=== PATIENT | male | born 1975 | race Caucasian/White ===

== ENCOUNTER 2019-04-02 11:30 | Emergency (ER) | payer MEDICAID, SELFPAY ==
[2019-04-02] VITALS (8 sets, daily range): BP systolic 101–126; BP diastolic 69–78; PULSE 55–92; RESP 12–17; TEMP 36.3; O2SAT 97–98; BMI 26.8
--- NOTE | 2019-04-02 11:45 | ED.RN ---
PT IS RESPECTFUL AND COOPERATIVE. PT IS TEARFUL AT BEDSIDE.
[2019-04-02 12:01] LABS: Absolute Lymphocyte Count 1.89 X10^3/uL (0.83-4.51); Basophil# 0.04 X10^3/uL; Basophil% 0.7 % (0-1); Eosinophil# 0.15 X10^3/uL; Eosinophils% 2.6 % (0-5); Hematocrit 40.3 % (40-54); Hemoglobin 13.9 g/dL (13.0-16.5); Lymphocyte # 1.89 X10^3/ul (4.0); Lymphocyte % 32.6 % (19-41); Mean Corp Hgb Conc 34.5 g/dL (32-36); Mean Corpuscular Hgb 31.2 pg (27.0-32.0); Mean Corpuscular Volume 90.4 fL (80-94); Mean Platelet Vol. 9.3 fl (6.2-12.0); Monocyte# 0.64 X10^3/uL; Monocyte% 11.1 % (0-10); NRBC Flagged by Analyzer 0 % (0-5); Neutrophil % 51.8 % (47-70); Platelet Count 191 K/mm3 (150-450); RBC Distribution Width CV 13.2 % (11.6-14.6); RBC Distribution Width SD 43.5 fl (35.1-43.9); Red Blood Count 4.46 M/mm3 (4.6-6.2); White Blood Count 5.8 K/mm3 (4.4-11.0)
[2019-04-02 12:08] LABS: Anion Gap 4 (5-15); BUN 16 mg/dL (7-18); BUN/Creat Ratio 15.5 RATIO (10-20); Calcium,Total 9.3 mg/dL (8.5-10.1); Chloride 108 mmol/L (98-107); Creatinine, Serum 1.03 mg/dL (0.70-1.30); EST Glomerular Filtration Rate 84 mL/min (>60); Est Glom Filt Rate - Afr Amer 102 mL/min (>60); Estimated Creatinine Clearance 103.59 ml/min; Glucose 98 mg/dL (74-106); Potassium 3.7 mmol/L (3.5-5.1); Sodium Level 140 mmol/L (136-145)
[2019-04-02 12:22] LABS: Amphetamine Urine VISTA POSITIVE (<1000 ng/mL); Barbiturate Urine VISTA NEGATIVE (< 200 ng/mL); Benzodiazepine Urine VISTA NEGATIVE (< 200 ng/mL); Cocaine Urine VISTA NEGATIVE (< 300 ng/mL); Ecstacy Urine VISTA NEGATIVE (< 500 ng/mL); Methadone Urine VISTA NEGATIVE (< 300 ng/mL); PCP Urine VISTA NEGATIVE (< 25 ng/mL); THC Urine VISTA NEGATIVE (< 50 ng/mL); Vista UDS pH Range 6
[2019-04-02 12:26] LABS: Alcohol, Blood (Medical)-Serum < 3.0 mg/dL
--- NOTE | 2019-04-02 12:49 | ED.VISSUMM ---
- ER Visit Summary Date of Service: 04/02/19 Chief Complaint: Suicidal ideation History of Present Illness: The patient is a 43 M who complains of suicidal ideation. Today he got into an argument with his significant other and wanted to kill himself. He tried to cut his throat with a piece of glass. He cut the right side but it is very superficial. He does admit to a history of attempts in the past. He has no psychiatric admissions in the past. He does not see any psychiatric worker, mental health counselor or psychiatrist at this time. Physical Examination: Vital signs reviewed. HEENT exam unremarkable. Heart is regular rate and rhythm without murmurs. Lungs are clear to auscultation. Abdomen is soft and nontender. Extremities reveal no edema. Skin exam shows a superficial abrasion to the right side of the neck. His neurologic exam is normal. He has a flat affect and does voice suicidal thoughts. Test Results: Laboratory studies negative except for a tox screen which showed amphetamines Emergency Department Course and Treatment: Patient was assessed by the mental health worker. He will need to be placed. He will likely go to [facility]. Will await an open bed and the patient will be transferred there Treatment Plan: [] Disposition: Transfer Impression: Suicidal ideation This note was generated with [employer] dictation software. It may contain incorrect words, spelling, and punctuation that were not noted in review of the chart prior to signing ED Disposition - Plan for ED Patient: Referrals: Care Physician,No Primary [Primary Care Provider] -
--- NOTE | 2019-04-02 13:27 | CM.ED ---
Social Work Patient to be assessed by crisis due to self-pay status. Nursing staff/doctor aware. Cardiology Physician to contact crisis when patient is medically cleared. Ronna Lopez MSW, JEROME
--- NOTE | 2019-04-02 14:27 | EKG12_ITS ---
Test Reason : MEDICAL CLEARANCE Blood Pressure : / mmHG Vent. Rate : 052 BPM Atrial Rate : 052 BPM P-R Int : 158 ms QRS Dur : 092 ms QT Int : 440 ms P-R-T Axes : 066 073 065 degrees QTc Int : 409 ms Sinus bradycardia Otherwise normal ECG Confirmed by ALIREZA SMITH, VIKTORIYA ([id number]), supervising editor news reel PALMER PRAKASH ([id number]) on 04/06/2019 1:53:36 PM Referred By: RISHABH Confirmed By:JONH LAY MD
--- NOTE | 2019-04-02 16:31 | ED.RN ---
PER CEFERINO WITH CRISIS PT WILL HAVE TO GO TO [facility] DUE TO NO INSURANCE. THE WAIT COULD BE TUESDAY OR TUESDAY BEFORE THERE WILL BE A BED READY
--- NOTE | 2019-04-02 18:17 | ED.RN ---
[facility] CALLED REQUESTING LIVER PANEL.
[2019-04-02 18:39] LABS: AST(SGOT) 25 U/L (15-37); Alanine Aminotransfer ALT/SGPT 25 U/L (16-61); Albumin, Serum 3.7 g/dL (3.2-5.0); Alkaline Phosphatase 77 U/L (45-117); Bilirubin, Direct 0.28 mg/dL (0.00-0.30); Globulin 3.9 g/dL (2.2-4.2); Protein, Total 7.6 g/dL (6.4-8.2)
[2019-04-03] VITALS (13 sets, daily range): BP systolic 96–110; BP diastolic 62–78; PULSE 57–74; RESP 12–19; O2SAT 99–100
[2019-04-03] MEDS: Nicotine Polacrilex 2 MG GUM PO ×2 (08:47→14:54)
--- NOTE | 2019-04-03 13:28 | NURSING ---
CRISIS IN ROOM
--- NOTE | 2019-04-03 14:18 | CM.ED ---
Social Work Consult: Self-Pay Informant: Self Met with patient in room. Introduced self as well as psychotherapist social worker role. Patient currently pending approval at [facility] and crisis has assessed patient due to self-pay status. This psychotherapist social worker inquiring about possible Medicaid as an option for patient. Patient stating to have no I.D. or Social security card. Patient stating to currently be homeless but that patient girlfriend is meeting with someone for possible housing today. Patient stating to have no income and to have recently moved to [place] from [place] due to girlfriend. Patient stating to have thought to have had insurance in [place]. This psychotherapist social worker educating patient on Medicaid application process. Patient stating to have no supportive documentation. This psychotherapist social worker educating patient on options to obtain social security card and I.D. as these documents will assist in patient obtaining Medicaid. All questions answered. PLAN: Discharge to [facility] pending approval. Ronna CANTRELL, JEROME
--- NOTE | 2019-04-03 14:47 | NURSING ---
CALLED [facility], NO [facility] AVAILABLE CALLED [facility], ETA IS FROM [place]
== END 2019-04-03 15:11 ==
LOC: ED 12:03
PROVIDERS: Emergency Medicine; Emergency Provider Emergency Medicine
DX: R45.851 Suicidal ideations (principal); S10.91XA Abrasion of unspecified part of neck, initial encounter; Z72.0 Tobacco use; X78.0XXA Intentional self-harm by sharp glass, initial encounter; Y93.89 Activity, other specified; Y92.009 Unspecified place in unspecified non-institutional (private) residence as the place of occurrence of the external cause; Y99.8 Other external cause status
CPT/HCPCS: 80048; 80076; 80307; 80320; 85025; 93005; 99285; G0480

== ENCOUNTER 2019-10-14 11:59 | Emergency (ER) | payer MEDICAID, SELFPAY ==
[2019-08-30 14:11] VITALS: BMI 26.8
[2019-10-14 11:59] VITALS: BP 129/74; PULSE 109; RESP 16; TEMP 36.3; O2SAT 98; BMI 29.9
--- NOTE | 2019-10-14 12:20 | RAD_ITS ---
STUDY: X-RAY - LEFT ELBOW REASON FOR EXAM: Male, 44 years old. Laceration to elbow, arm went through glass TECHNIQUE: 3 view(s) of the elbow. COMPARISON: None. FINDINGS: Normal visualized humerus, radius and ulna. Normal radiocapitellar and ulnotrochlear articulations. The soft tissue structures are unremarkable. RAD/Elbow min 3 Views IMPRESSION: 1. Normal x-ray examination of the left elbow. 2. No radiopaque glass foreign body in the left elbow. Electronically Signed: Lv Freeman MD at 12:45 EDT , Service support ,
--- NOTE | 2019-10-14 12:22 | ED.DCSUM_ITS ---
- ER Visit Summary Date of Service: 10/14/19 Chief Complaint: Left forearm laceration History of Present Illness: The patient is a 44 M who presents with a laceration to his left forearm that occurred today. Patient states he cut his forearm on a piece of broken glass. Patient states he was walking by a window and the glass was broken. Patient does not think there is any glass in the wound. Patient does not remember his last tetanus. Patient states his pain is mild. Patient states his pain is sharp and burning. Patient states the pain is worse with movement. Patient denies any paresthesias or weakness. Physical Examination: Vital signs are stable. Patient is afebrile. Patient is in no acute distress. Skin is warm and dry. There is a 3 cm full-thickness linear laceration over the dorsal aspect of the left proximal forearm near the elbow. There is moderate gapping of the wound margins. There are no foreign bodies visualized. Sensation was intact to light touch in all areas of the wound. Sensation was intact light touch in the radial, median, and ulnar areas. Radial pulses are equal bilaterally. Capillary refill was less than 2 seconds in all digits. Test Results: X-rays of the left elbow were obtained. There is no foreign body noted. There is no fracture noted. This was interpreted by the radiologist and reviewed by myself. Emergency Department Course and Treatment: Patient was given a tetanus booster. The wound was cleaned and irrigated with copious amounts of normal saline. The wound was anesthetized with 1% lidocaine with epinephrine locally. The wound was closed with 5 simple interrupted #4 -0 nylon sutures under sterile technique. Patient tolerated the procedure well. Bacitracin dressing was applied. Patient was instructed to keep the wound clean and dry. Patient was instructed to follow-up with his primary care physician in 7 days for wound recheck and suture removal. Patient understood and was agreeable with the plan. All questions were answered. Disposition: Discharge home Impression: Left forearm laceration This note was generated with [employer] dictation software. It may contain incorrect words, spelling, and punctuation that were not noted in review of the chart prior to signing ED Disposition - Plan for ED Patient: Disposition: Home or Assisted Living Diagnosis: Laceration of left forearm without complication Instructions: ED Laceration Ext Sutr Stap Tape Referrals: Care Physician,No Primary [Primary Care Provider] - Simone Castillo MD [NON-STAFF] - 7 Days for suture removal
[2019-10-14] MEDS: Diphth,Pertuss(Acell),Tet Vac 0.5 ML Vial IM (12:35)
[2019-10-14] MEDS: BACITRACIN 15 GM Tube 1 APPLIC TOPICAL (12:35)
== END 2019-10-14 14:47 | disposition home or self-care (01) ==
PROVIDERS: Emergency Provider Emergency Medicine
DX: S51.812A Laceration without foreign body of left forearm, initial encounter (principal); F32.9 Major depressive disorder, single episode, unspecified; Y28.0XXA Contact with sharp glass, undetermined intent, initial encounter
CPT/HCPCS: 12002; 73080; 90715; 99283

== ENCOUNTER → 2019-11-13 12:39 | Outpatient (CLI) | payer MEDICAID, SELFPAY ==
--- NOTE | 2019-08-30 02:11 | HP_ITS ---
Intake Vital Signs 08/30/19 BMI 26.8 08/30/19 Height 5 ft 10 in 08/30/19 Weight: 210 lb 6 oz 08/30/19 BMI 30.2 08/30/19 BP 126/81 H 08/30/19 Blood Pressure Location Rt brachial 08/30/19 Position Sitting 08/30/19 Respiration 20 H 08/30/19 Pulse 65 08/30/19 Pulse Oximetry (%) 96 Intake Visit Reasons: CHOLELITHIASIS/ US 08/20 Chief Complaint: gallstones Seismographer Required: No Is patient in pain?: No Allergies TUNA FISH Allergy (Uncoded 04/02/19 11:31) Swelling Medications citalopram 20 mg tablet 20 mg PO DAILY 08/30/19 [History Confirmed 08/30/19] metoclopramide HCl 5 mg tablet 5 mg PO QACHS 08/30/19 [History Confirmed 08/30/19] risperidone 2 mg tablet 2 mg PO QHS 08/30/19 [History Confirmed 08/30/19] [facility] Medical History (Updated 08/30/19 @ 13:55 by Mel Aldana) Anxiety and depression (Acute) GERD (gastroesophageal reflux disease) (Acute) Gallstone (Acute) Gastric ulcer (Acute) Hemorrhoid (Acute) Surgical History (Updated 08/30/19 @ 13:56 by Mel Aldana) History of ERCP (Acute) History of colonoscopy (Acute ~2017) History of liver injury (Acute) History of orchiectomy, unilateral (Acute) Family History (Updated 08/30/19 @ 13:56 by Mel Aldana) Mother Cancer lung/brain Brother Seizures Social History (Updated 08/30/19 @ 14:[address] Alex Amador MD) Smoking Status: Current every day smoker HPI HPI HPI: AILYN CADENA, is a 44 M who presents to the office today for HPI HPI Surgical H&P: Yes HPI: AILYN CADENA, is a 44 M who presents to the office today for Gallbladder issues. The patient has had known issues with gallstones in the past. He reports that in 1999 he had an ERCP which caused hemobilia requiring ICU admission. His gallbladder was never removed. The patient reports he has been in good health since but he reports that about a week ago he had the worst gallbladder attack he is ever had. He was on the floor of his cell for 14 hours with nausea and vomiting. He is currently on a low-fat diet but still experiences pain with eating. The pain is in her epigastric and right upper quadrant area. He says the nausea and vomiting have resolved. He is not having any fevers or chills. ROS General General: No weight change, appetite, fatigue, colon cancer, breast cancer or weakness HEENT HEENT: No difficulty swallowing, eye injury, eye surgery, swollen glands or hoarseness Endo Endocrine: No thyroid disease, diabetes mellitus, thyroid cancer, Hair loss, heat intolerance or cold intolerance Cardio Cardiovascular: No murmur, pacemaker, heart disease, atrial fibrillation, high blood pressure, heart attack, heart stent, palpitations, shortness of breat with exertion or chest pain Psych Psychiatric: Yes depression and anxiety; no hearing voices Resp Respiratory: No shortness of breath, No sleep apnea, No cough, No COPD, No asthma, No emphysema, No wheezing Gastro Gastrointestinal: Yes abdominal pain, Yes nausea or vomiting, No diarrhea, Yes constipation, No blood in stool, Yes acid reflux, Yes hemorrhoids, Yes ulcers, Yes gallbladder problem, No black,tarry stools Jose Hematologic: No blood thinners, No blood disorders, No bleeding, No anemia, No blood clots Neuro Neurologic: No weakness Exam Const General: cooperative Orientation: alert, oriented x3 HENOH Head: normal to inspection Ears: hearing grossly normal bilaterally Eyes General: appearance normal, both eyes and all related structures Visual Martinez: normal visual martinez by confrontation Neck Neck: normal visual inspection Chest Chest palpation & inspection: normal inspection of the chest Resp Effort & Inspection: normal respiratory effort Auscultation: clear to auscultation bilaterally Cardio Rate: regular rate Rhythm: regular rhythm Heart Sounds: no murmurs GI Inspection: non-distended Palpation: soft, tender in the RUQ Musc Cervical Spine: normal cervical lordosis, cervical ROM normal Skin General: no rashes or lesions noted Neuro General: alert, oriented x3 Cranial Nerves: CN's II-XI intact bilaterally Cognition: normal cognition Extrem General: normal to inspection, full ROM Psych Appearance: grossly normal Affect: normal affect Assessment & Plan Problems 1. Calculus of gallbladder with chronic cholecystitis without obstruction K80.10 Plan The patient has symptoms coinciding with cholelithiasis and possible chronic cholecystitis. The patient may have had acute cholecystitis a week ago. At that time they performed an ultrasound of the gallbladder which showed a mildly thickened gallbladder wall with a 1.5 cm shadowing stone. Patient is still having pain with eating in the epigastric and right upper quadrant. Patient likely needs laparoscopic cholecystectomy. The patient is done with his sentence in October but likely will get acute cholecystitis again before this if the gallbladder is not removed. I am ordering a CBC and a CMP to check his liver enzymes and white count. The patient does have elevated white count and continues with nausea vomiting he may need urgent cholecystectomy. I discussed the procedure in detail with the patient. I discussed the risks, benefits, and alternatives of the procedure. I discussed the risks including but not limited to bleeding, infection, injury to surrounding organs such as the liver, bile duct, bowels. I did discuss the possibility of having to convert to an open procedure as well as the possibility that if any injuries occurred this may necessitate further surgery at a tertiary care center. I will send this note to the correction with him for evaluation by the resource recovery engineer. If they deem that cholecystectomy is permissible I will perform an outpatient laparoscopic cholecystectomy on the patient. The patient would be able to be discharged the same day of surgery and would only need activity restrictions for 2 weeks. Alex Amador MD Pager: [facility] [address] [place] [address], [address] [place] [address] Office: Orders Orders: Comprehensive Metabolic Profil Today R10.9, R11.10 CBC W/Diff, Automated Today R10.9, R11.10 Medications New: risperidone 2 mg PO QHS citalopram (Celexa) 20 mg PO DAILY metoclopramide HCl (Reglan) 5 mg PO QACHS Coding Level of Care Code Off vis,new,level 4 Diagnoses Calculus of gallbladder with chronic cholecystitis without obstruction K80.10 ??Cholelithiasis location: gallbladder ??Cholecystitis acuity: chronic ??Biliary obstruction: without biliary obstruction ??Cholecystitis presence: with cholecystitis Time Spent (min) 45 08/30/19 1411 <Electronically signed by Alex urrutia MD> Date _ Alex Amador MD
[2019-08-30 14:11] VITALS: BMI 26.8
[2019-10-14 11:59] VITALS: BMI 29.9
== END ==
PROVIDERS: Visit Provider Surgery
DX: K80.10 Calculus of gallbladder with chronic cholecystitis without obstruction (principal)

== ENCOUNTER 2019-12-23 08:55 | Emergency (ER) | payer MEDICAID, SELFPAY ==
[2019-12-23 08:56] VITALS: BP 144/69; PULSE 98; RESP 17; TEMP 36.5; O2SAT 98; BMI 25.2
--- NOTE | 2019-12-23 09:13 | ED.VISSUMM ---
- ER Visit Summary Date of Service: 12/23/19 Chief Complaint: Suicidal gesture History of Present Illness: The patient is a 44 M Who presents with suicidal gesture that occurred today. Patient states he got into an argument with his girlfriend. Patient states his girlfriend called the police and told police that he was having suicidal thoughts and wanted to cut his throat. Patient currently denies any suicidal ideations or gestures. Patient states he has an appoint with the counseling center tomorrow. Patient has been out of his psychiatric medications. Patient admits to methamphetamine use yesterday. Physical Examination: Vital signs are stable. Patient is afebrile. Patient is in no acute distress. Oral mucosa is pink and moist. Neck is supple. Trachea is midline. There is no JVD noted. Heart was regular rate and rhythm. Lungs are clear and equal bilaterally. Abdomen is soft. Bowel sounds are normal. There is no tenderness. There is no rebound or guarding noted. Skin is warm dry. Cranial nerves II through XII are intact. There are no focal motor or sensory deficits noted. Extremities are intact. There is no calf tenderness or edema. Patient is depressed. Patient has a flat affect. Patient was texting on his phone during my examination. Test Results: CBC and basic metabolic profile were obtained were within normal limits. Urine tox urine was positive for amphetamines and methamphetamines. Serum alcohol level was normal. Emergency Department Course and Treatment: Patient was cooperative during his emergency department stay. Case was discussed with crisis counselor. They will evaluate the patient over the phone. Patient has an appointment with 180 tomorrow. Crisis will arrange for follow-up. Patient will sign a safety plan. Patient was instructed to follow-up with crisis in 180 as scheduled. Patient understood and was agreeable with the plan. All questions were answered. Disposition: Discharge home Impression: 1. Depression This note was generated with [employer] dictation software. It may contain incorrect words, spelling, and punctuation that were not noted in review of the chart prior to signing ED Disposition - Plan for ED Patient: Disposition: Home or Assisted Living Diagnosis: Depression Instructions: ED Depression, ED AMPHETAMINE ABUSE Referrals: Care Physician,No Primary [Primary Care Provider] - [facility] [STAFF PHYSICIAN] - [facility] appointment Counsel[facility] [GROUP OF PHYSICIANS] - [facility] appointment
[2019-12-23 09:40] LABS: Amphetamine Urine VISTA POSITIVE (<1000 ng/mL); Barbiturate Urine VISTA NEGATIVE (< 200 ng/mL); Benzodiazepine Urine VISTA NEGATIVE (< 200 ng/mL); Cocaine Urine VISTA NEGATIVE (< 300 ng/mL); Ecstacy Urine VISTA POSITIVE (< 500 ng/mL); Methadone Urine VISTA NEGATIVE (< 300 ng/mL); PCP Urine VISTA NEGATIVE (< 25 ng/mL); THC Urine VISTA NEGATIVE (< 50 ng/mL); Vista UDS pH Range 5
[2019-12-23 09:41] LABS: Absolute Lymphocyte Count 1.58 X10^3/uL (0.83-4.51); Absolute Neutrophil Count 3.8 X10^3/uL (2.0-7.7); Basophil# 0.04 X10^3/uL; Basophil% 0.6 % (0-1); Eosinophil# 0.16 X10^3/uL; Eosinophils% 2.6 % (0-5); Hematocrit 40.9 % (40-54); Hemoglobin 13.6 g/dL (13.0-16.5); Lymphocyte # 1.58 X10^3/ul (4.0); Lymphocyte % 25.5 % (19-41); Mean Corp Hgb Conc 33.3 g/dL (32-36); Mean Corpuscular Hgb 30.4 pg (27.0-32.0); Mean Corpuscular Volume 91.5 fL (80-94); Mean Platelet Vol. 9.4 fl (6.2-12.0); Monocyte% 9.7 % (0-10); NRBC Flagged by Analyzer 0 % (0-5); Neutrophil % 61.4 % (47-70); Platelet Count 215 K/mm3 (150-450); RBC Distribution Width CV 13.2 % (11.6-14.6); RBC Distribution Width SD 43.6 fl (35.1-43.9); Red Blood Count 4.47 M/mm3 (4.6-6.2); White Blood Count 6.2 K/mm3 (4.4-11.0)
[2019-12-23 09:50] LABS: Anion Gap 3 (5-15); BUN 12 mg/dL (7-18); Calcium,Total 9.1 mg/dL (8.5-10.1); Chloride 109 mmol/L (98-107); EST Glomerular Filtration Rate 87 mL/min (>60); Est Glom Filt Rate - Afr Amer 105 mL/min (>60); Estimated Creatinine Clearance 105.62 ml/min; Glucose 106 mg/dL (74-106); Potassium 3.6 mmol/L (3.5-5.1); Sodium Level 141 mmol/L (136-145)
== END 2019-12-23 11:10 | disposition home or self-care (01) ==
LOC: ED 10:38
PROVIDERS: Emergency Provider Emergency Medicine
DX: F32.9 Major depressive disorder, single episode, unspecified (principal); F15.90 Other stimulant use, unspecified, uncomplicated; M54.9 Dorsalgia, unspecified; F17.200 Nicotine dependence, unspecified, uncomplicated
CPT/HCPCS: 80048; 80307; 80320; 85025; 99283; G0480